=== PATIENT | female | born 1985 ===

== ENCOUNTER → 2023-07-13 13:56 | Outpatient (CLI) | payer OTHER, SELFPAY ==
--- NOTE | ~2023-07-13 | MR_ITS ---
EXAMINATION: MR knee RT wo con DATE: 07/13/2023 14:28 INDICATION: Right knee pain TECHNIQUE: Magnetic resonance imaging (MRI) of the right knee was performed without intravenous contr ast. Sequences included coronal PD-weighted FSE, coronal PD-weighted FS FSE, sagittal T2-weighted FS E, sagittal PD-weighted FS FSE and axial PD weighted fat saturated FSE. COMPARISON: Right knee radiographs dated 03/15/2023 FINDINGS: Medial compartment: Medial meniscus is normal. Articular cartilage is normal. Lateral compartment: Lateral meniscus is normal. Partial-thickness chondral fissuring without degenerative subchondral yenny nges at the anterior weightbearing lateral femoral condyle and posterior aspect of the lateral tibial plateau. Patellofemoral compartment: Partial-thickness chondral ulceration and fissuring without degenerative subchondral changes at the c audal aspect of the patella including the medial and lateral facets and intervening apical ridge. Add itional chondral ulceration and deep fissuring at the medial and lateral trochlea and intervening tro chlear groove. There is underlying mild cortical irregularity and minimal subarticular edema-like sig nal change at the caudal aspect of the trochlear groove. Ligaments and tendons: Anterior and posterior cruciate ligaments are normal. The medial collateral ligament and fibular lindsay ateral ligament complex are normal. Small enthesophyte at the superficial patellar insertion of the o therwise normal quadriceps tendon. Patellar tendon is normal. The visualized medial and lateral hamst ring tendons as well as the iliotibial band are normal. Fluid: Physiologic amount of fluid in the joint space. No loose osteochondral bodies identified. Osseous/other: Bone alignment is normal. No fracture or pathologic marrow replacing process. There is edema in the i nfrapatellar fat pad along the lateral inferior margin of the patella and at the deep infrapatellar f at pad which can be seen with fat pad impingement syndrome. IMPRESSION: 1. 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 2. Edema in the portions of the infrapatellar and deep suprapatellar fat pads which can be seen with fat pad impingement syndrome. Reviewed, dictated and finalized at location A. IMPRESSION: 1. 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 2. Edema in the portions of the infrapatellar and deep suprapatellar fat pads w hich can be seen with fat pad impingement syndrome.
--- NOTE | ~2023-07-13 | MR_ITS ---
EXAMINATION: MR knee LT wo con DATE: 07/13/2023 14:42 INDICATION: Left knee pain TECHNIQUE: Magnetic resonance imaging (MRI) of the left knee was performed without intravenous contra st. Sequences included coronal PD-weighted FSE, coronal PD-weighted FS FSE, sagittal T2-weighted FSE , sagittal PD-weighted FS FSE and axial PD weighted fat saturated FSE. COMPARISON: None. FINDINGS: Medial compartment: Medial meniscus is normal. Small deep chondral fissure without degenerative subchondral changes at th e anterior weightbearing medial femoral condyle. Normal articular cartilage along the medial tibial p lateau. Lateral compartment: Lateral meniscus is normal. Partial-thickness chondral fissuring without degenerative subchondral yenny nges extending obliquely across the lateral tibial plateau. Normal articular cartilage along the weig htbearing lateral femoral condyle. Patellofemoral compartment: Deep chondral fissuring without degenerative subchondral changes along the patellar apical ridge and medial patellar facet. Mild chondral surface regularity along the inferior aspect of the lateral face t. Partial-thickness chondral ulceration and deep fissuring without degenerative subchondral changes at the trochlear groove and immediately adjacent lateral trochlea. Ligaments and tendons: Anterior and posterior cruciate ligaments are normal. The medial collateral ligament and fibular lindsay ateral ligament complex are normal. The extensor mechanism is normal. The visualized medial and later al hamstring tendons as well as the iliotibial band are normal. Fluid: Small knee joint effusion. No loose osteochondral bodies identified. Osseous/other: Approximately 1 cm lateral patellar subluxation. Normal marrow signal. No fracture or pathologic tha ow replacing process. There is edema in the superficial and infrapatellar fat pads which can be seen with fat pad impingement syndrome. IMPRESSION: 1. Normal menisci and stabilizing ligaments of the knee. 2. Mild tricompartmental osteoarthritis with regions of moderate grade chondromalacia in all 3 compar tments, greatest in the patellofemoral compartment. 3. 1 cm lateral patellar subluxation and edema in the infrapatellar and superficial suprapatellar fat pads which can be seen with fat pad impingement syndrome. Reviewed, dictated and finalized at location A. IMPRESSION: 1. Normal menisci and stabilizing ligaments of the knee. 2. Mild tricompartmental osteoarthritis with regions of moderate grade chondrom alacia in all 3 compartments, greatest in the patellofemoral compartment. 3. 1 cm lateral patellar subluxation and edema in the infrapatellar and superfi cial suprapatellar fat pads which can be seen with fat pad impingement syndrome .
== END ==
PROVIDERS: PCP Orthopaedic Surgery; Visit Provider Orthopaedic Surgery
DX: M17.0 Bilateral primary osteoarthritis of knee (principal)
CPT/HCPCS: 73721